=== PATIENT | female | born 1995 | race Caucasian/White ===

== ENCOUNTER 2019-12-10 10:28 | Emergency (ER) | payer OTHER, SELFPAY ==
[~2019-12-10] VITALS: Ht 165.1 cm; Wt 59.9 kg
[2019-12-10 13:56] VITALS: Ht 165.1 cm; Wt 59.9 kg
[2019-12-10 14:29] VITALS: BP 127/82
== END 2019-12-10 14:29 | disposition home or self-care (01) ==
LOC: ED 10:28
DX: Z03.818 Encounter for observation for suspected exposure to other biological agents ruled out (principal)
CPT/HCPCS: U0003-CS